=== PATIENT | female | born 1950 | race Caucasian/White ===

== ENCOUNTER → 2017-10-05 09:15 | Outpatient (CLI) | payer MEDICARE, BC ==
[2015-06-08 09:03] VITALS: BMI 22.3
[~2017-10-05 09:15] MED LIST: ADDERALL 10 MG10 MG PO; ARMOUR THYROID60 M1 PO; ATROVENT HFA12.9 GM INH; BENZONATATE200 MG PO; CELEXA20 MG PO; ESTRADERM 0.00.05 MG TD; FLUTICASONE PRO16 GM NASAL; GLUCOPHAGE500 MG PO; MUCINEX600 MG PO; NORVASC5 MG PO; PROMETRIUM200 MG PO; PROVENTIL/2.5 MG/3 M INH; SINGULAIR10 MG PO; TUSSIONEX PENN473 ML PO; VENTOLIN HFA18 GM INH
== END | disposition home or self-care (01) ==
LOC: D.ECHO 09:15
DX: C34.31 Malignant neoplasm of lower lobe, right bronchus or lung (principal); Z51.11 Encounter for antineoplastic chemotherapy